=== PATIENT | female | born 2000 | race African-American/Black ===

== ENCOUNTER 2020-07-06 22:13 | Emergency (ER) | payer MEDICAID ==
[~2020-07-06] VITALS: Ht 162.6 cm; Wt 96.0 kg
[2020-07-06 22:30] VITALS: BP 129/81
[2020-07-06] MEDS ORDERED: IBUPROFEN 600MG TABLET PO ONE (22:45)
== END 2020-07-07 00:01 | disposition home or self-care (01) ==
LOC: ER 22:13
DX: S61.210A Laceration without foreign body of right index finger without damage to nail, initial encounter (principal); W18.39XA Other fall on same level, initial encounter; Y93.89 Activity, other specified; Y92.89 Other specified places as the place of occurrence of the external cause; Y99.8 Other external cause status
CPT/HCPCS: 12001; 73130; 81025; 99283